=== PATIENT | female | born 1960 | race Two or more races ===

== ENCOUNTER 2019-02-20 10:36 | Emergency (ER) | payer MEDICAID ==
[~2019-02-20] VITALS: Ht 157.5 cm; Wt 57.6 kg
[2019-02-20 11:10] VITALS: BP 114/82
[2019-02-20 11:52] LABS: Basophils # (auto) 0.1 uL; Eosinophils # (auto) 0.1 uL; Eosinophils % (auto) 1.4 % (0.0-7.0); Hematocrit 45.8 % (36.0-46.0); Hemoglobin 15.4 g/dL (12.2-16.2); Lymphocytes # (auto) 3.1 uL; Lymphocytes % (auto) 44.1 % (10.0-50.0); Mean Corpuscular Hemoglobin 31.4 pg (28.0-32.0); Mean Corpuscular Hgb Conc. 33.6 g/dL (32.0-36.0); Mean Corpuscular Volume 93.3 fL (80.0-100.0); Monocytes # (auto) 0.6 uL; Monocytes % (auto) 7.8 % (0.0-12.0); Neutrophils # (auto) 3.2 uL; Neutrophils % (auto) 45.7 % (37.0-80.0); Nucleated Red Blood Cells % 0.1 %; Platelet Count (auto) 238 10^3/uL (140-450); Red Blood Cells 4.91 10^6/uL (4.0-5.20); Red Cell Distribution Width 13.2 % (11.8-14.3)
[2019-02-20 12:10] LABS: Albumin 3.8 g/dL (3.4-5.0); Anion Gap 6 (5-15); Blood Urea Nitrogen 7 mg/dL (7-18); Calcium 9.3 mg/dL (8.5-10.1); Carbon Dioxide 29 mmol/L (21-32); Chloride 100 mmol/L (98-107); Magnesium 2.4 mg/dL (1.6-2.6); Potassium 4.4 mmol/L (3.5-5.1); Sodium 135 mmol/L (136-145)
[2019-02-20 12:17] LABS: Alanine Aminotransferase 24 U/L (13-56); Alkaline Phosphatase 134 U/L (45-117); Aspartate Aminotransferase 18 U/L (15-37); GFR African American 98 mL/min; GFR Non-African American 81 mL/min; Total Protein 7.8 g/dL (6.4-8.2)
[2019-02-20 12:28] LABS: Urine Bacteria NONE SEEN /hpf (None Seen); Urine Blood Negative /uL (Negative); Urine Budding Yeast OCCASIONAL /hpf (None Seen); Urine Specific Gravity 1.048 (1.001-1.035); Urine WBC <1 /hpf (0 - 5)
[2019-02-20 12:29] LABS: Glucose 442 mg/dL (74-106)
== END 2019-02-20 16:14 | disposition left against medical advice (07) ==
LOC: ER 10:36
DX: R42 Dizziness and giddiness (principal); Z53.21 Procedure and treatment not carried out due to patient leaving prior to being seen by health care provider
CPT/HCPCS: 36415; 80053; 81001; 83735; 83880; 84484; 85025; 93005